=== PATIENT | male | born 1980 | race Hispanic/Latino ===

== ENCOUNTER 2017-05-19 19:53 | Observation (INO) | payer OTHER ==
--- NOTE | 2017-05-19 20:54 | ED PDOC ---
HPI: Chest Pain Time Seen by Provider: 05/19/17 20:02 Chief Complaint (Nursing): Palpitations History Per: Patient, Family History/Exam Limitations: no limitations Onset/Duration Of Symptoms: Hrs Current Symptoms Are (Timing): Still Present Quality: Other (fluttering in chest ) Associated Symptoms: Diaphoresis Modifying Factors: None Exacerbating Factors: None Alleviating Factors: None Additional Complaint(s): CC: fluttering of my heart HPI: 36 YO Male with PMH Of HTN, pre-diabetes, and prolactinoma presents to [facility] ED for palpitations. Pt states that he noticed rapid heart beat about 2 hrs ago, but noticed that it worsened in the past 45mins. He states that he feels uncomfortable and is anxious. Had similar episode in December when he was in [place]. Pt was seen in an urgent care and subsequently sent to the ED where he was admitted to the hospital and worked up where "everything came back negative", they did not find a cause of his rapid heart beat. Pt states that he takes 3 meds for his bp lisinopril, amlodipine, and metoprolol and cabergoline which he takes 2x a week. 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 Roche. Had an echo done at the same time, which was "normal" per pt. Denies chest pain, dyspnea, headache, dizziness, light headed, n/v/d/c, chills, fevers. Partner present by bedside. Pt has a cough, took a [facility] brand cough medication a few days ago. PMD: Annetta ROWE PMH: HTN, pre-diabetes, and prolactinoma SurgHx: denies SH: denies ETOH, smoking and illicit drug use FH: hx of CAD, HTN and DM in family Allergies: NKDA Meds: lisinopril, amlodipine, metoprolol, metformin, cabergoline Past Medical History Vital Signs: Last Vital Signs Temp 98.1 F 05/19/17 20:01 Pulse 106 H 05/19/17 23:50 Resp 16 05/19/17 23:50 BP 107/41 L 05/19/17 23:50 Pulse Ox 100 05/20/17 01:10 - Medical History PMH: HTN Other PMH: prolactinoma, pre-diabetes - Surgical History Surgical History: No Surg Hx - Family History Family History: States: CAD, Diabetes, Hypertension - Living Arrangements Living Arrangements: With Family - Social History Current smoker - smoking cessation education provided: No Alcohol: None Drugs: Denies - Home Medications Home Medications: Ambulatory Orders Medication Instructions Recorded Cabergoline 0.5 mg PO QWK 05/19/17 Lisinopril/Hydrochlorothiazide 1 each PO BID 05/19/17 [Lisinopril-Hctz 10-12.5 mg Tab] Metformin HCl [Glucophage] 500 mg PO BID 05/19/17 Metoprolol Succinate [Toprol XL] 100 mg PO DAILY 05/19/17 amLODIPine [Norvasc] 10 mg PO DAILY 05/19/17 - Allergies Allergies/Adverse Reactions: Allergies Allergy/AdvReac Type Severity Reaction Status Date / Time No Known Allergies Allergy Verified 05/19/17 20:01 Wells Criteria for PE - Wells Criteria for Pulmonary Embolism Heart Rate >100: Yes Immobilization at least 3 days;Surgery previous 4 weeks: No Previous, objectively diagnosed PE or DVT: No Hemoptysis: No Malignancy w/treatment within 6 months, or palliative: No Total Score: 1.5 Review of Systems Constitutional: Negative for: Fever, Chills Cardiovascular: Positive for: Palpitations. Negative for: Chest Pain, Edema Respiratory: Positive for: Cough. Negative for: Shortness of Breath Gastrointestinal: Negative for: Nausea, Vomiting, Abdominal Pain, Diarrhea, Constipation Neurological: Negative for: Confusion, Seizures, Headache Physical Exam - Reviewed Vital Signs Reviewed: Yes - Physical Exam Appears: Positive for: In Acute Distress (diaphoretic ) Head Exam: Positive for: ATRAUMATIC, NORMOCEPHALIC Skin: Positive for: Diaphoresis Eye Exam: Positive for: Normal appearance, EOMI Neck: Positive for: Painless ROM Cardiovascular/Chest: Positive for: Tachycardia. Negative for: JVD, Murmur Respiratory: Positive for: Normal Breath Sounds. Negative for: Crackles, Wheezing Gastrointestinal/Abdominal: Positive for: Normal Exam, Bowel Sounds, Soft. Negative for: Tenderness Back: Positive for: Normal Inspection Extremity: Positive for: Normal ROM. 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 Negative for: Aphasia, Facial Droop - Laboratory Results Result Diagrams: 05/19/17 20:57 05/19/17 20:57 - ECG ECG: Positive for: Interpreted By Me ECG Rhythm: Positive for: Atrial Fibrillation Interpretation Of Abn EKG: A fib with a rate of 152 O2 Sat by Pulse Oximetry: 100 - Progress ED Course And Treament: 36 YO Male with PMH Of HTN, pre-diabetes, and prolactinoma presents to [facility] ED for palpitations. --cbc, Mg , phos --cmp --trops --EKG --cardizem 20mg --utox --etoh --vbg --TSH --PT/PTT --urine dip --chest x-ray Blood work neg; cbc, cmp, Mg, phos, tsh, pro BNP wnl Trops neg x 1 PT/PTT wnl utox and ETOH neg Metropolol 4mg IVP x 2 Repeat EKG, read by me; A fib with RVR, rate of 108 Pt seen and reevaluated Feels better, no longer feeling rapid acceleration in heart rate. Better rate control, HR 90's-100's Ct angio ordered Cardiology Dr. Roche consulted for rapid afib Will admit to patient for persistent a.fib with rvr CT angio IMPRESSION: No acute cardiopulmonary process. Disposition - Clinical Impression Clinical Impression: A-fib - Patient ED Disposition Is Patient to be Admitted: Yes - Disposition Disposition Time: 01:17 Condition: STABLE
[2017-05-19 21:04] LABS: VENOUS BLOOD GAS BASE EXCESS 1.7 mmol/L (0.0-2.0); VENOUS BLOOD GAS PCO2 30 mmHg (40-60); VENOUS BLOOD GAS PO2 49 mm/Hg (30-55); VENOUS BLOOD PH 7.51 (7.32-7.43)
[2017-05-19 21:04] LABS: BASO # 0.1 K/uL (0.0-0.2); BASO % 1.3 % (0.0-2.0); EOS # 0.2 K/uL (0.0-0.7); HEMOGLOBIN 14.8 g/dL (12.0-18.0); LYMPH # 2.7 K/uL (1.0-4.3); LYMPH % 32.2 % (20.0-40.0); MEAN CELL VOLUME 81.2 fl (80.0-94.0); MEAN CORPUSCULAR HGB CONC 33.2 g/dL (33.0-37.0); MEAN PLATELET VOLUME 9.3 fl (7.2-11.7); MONO # 0.7 K/uL (0.0-0.8); MONO % 8.8 % (0.0-10.0); NEUT # 4.6 K/uL (1.8-7.0); NEUT % 55.7 % (50.0-75.0); NRBC % 0.9 % (0.0-0.0); RBC 5.49 Mil/uL (4.40-5.90); RED CELL DISTRIBUTION WIDTH 13.8 % (11.5-14.5); WHITE BLOOD COUNT 8.3 K/uL (4.8-10.8)
[2017-05-19 21:28] LABS: B-TYPE NATRIURETIC PEPTIDE 83.9 pg/ml (0-450)
[2017-05-19 21:29] LABS: ALB/GLOB RATIO 1.2 (1.0-2.1); ALBUMIN 4.5 g/dL (3.5-5.0); ALT/SGPT 46 U/L (21-72); AST/SGOT 31 U/L (17-59); BLOOD UREA NITROGEN 15 mg/dl (9-20); GFR AFRICAN-AMERICAN > 60; GFR NON-AFRICAN AMERICAN > 60; MAGNESIUM 1.9 MG/DL (1.6-2.3)
[2017-05-19 21:37] LABS: PARTIAL THROMBOPLASTIN TIME 31.8 Seconds (25.6-37.1)
[2017-05-19] MEDS ORDERED: diltiaZEM 100 mg Vial ( ADD-VANTAGE ) IV ONE (21:43)
[2017-05-19 22:18] LABS: BARBITURATES, UR NEGATIVE (NEGATIVE); BENZODIAZEPINES, UR NEGATIVE (NEGATIVE); OPIATES, UR NEGATIVE (NEGATIVE); PHENCYCLIDINE, UR NEGATIVE (NEGATIVE)
[2017-05-19] MEDS ORDERED: Metoprolol 1 mg/ml Inj IVP STA ×2 (22:45→23:17)
[2017-05-19] MEDS ORDERED: CABERGOLINE 0.5 MG PO SCH (23:45)
[2017-05-19] MEDS ORDERED: Potassium Chloride 20 mEq ER Tab PO STA (23:52)
[2017-05-19] MEDS ORDERED: Sodium Chloride 0.9% 50 ML IV ONE (23:57)
[2017-05-19] MEDS ORDERED: Iodixanol 320 mg/ml 50 ml Sol IV ONE (23:57)
[2017-05-20] MEDS ORDERED: Enoxaparin 100 mg Syringe SC STA (00:33)
[2017-05-20] MEDS ORDERED: Potassium Chloride 20 mEq ER Tab PO ONE (00:54)
[2017-05-20 07:03] LABS: BASO # 0.1 K/uL (0.0-0.2); BASO % 0.9 % (0.0-2.0); EOS % 0.5 % (0.0-4.0); HEMOGLOBIN 14.4 g/dL (12.0-18.0); LYMPH # 2.5 K/uL (1.0-4.3); MEAN CELL VOLUME 81.5 fl (80.0-94.0); MEAN CORPUSCULAR HEMOGLOBIN 27.2 pg (27.0-31.0); MEAN CORPUSCULAR HGB CONC 33.4 g/dL (33.0-37.0); MEAN PLATELET VOLUME 9.4 fl (7.2-11.7); MONO # 0.8 K/uL (0.0-0.8); PLATELET COUNT 251 K/uL (130-400); WHITE BLOOD COUNT 9.5 K/uL (4.8-10.8)
--- NOTE | 2017-05-20 07:44 | CARD ---
APPROVED REPORT EKG Measurement Heart [id number] <Conclusion> Atrial fibrillation with rapid ventricular response Incomplete right bundle branch block ST & T wave abnormality, consider inferior ischemia Abnormal ECG
--- NOTE | 2017-05-20 07:52 | CARD ---
APPROVED REPORT EKG Measurement Heart [id number] <Conclusion> Sinus tachycardia Marked ST abnormality, possible inferior subendocardial injury Marked ST abnormality, possible anterolateral subendocardial injury Abnormal ECG
--- NOTE | 2017-05-20 08:02 | CP.PCM.HP ---
History of Present Illness - History of Present Illness History of Present Illness: pt admitted for tele obs after having palpitations and being in afib at rate of 160. at present. pressure to r axilla w/o palipitations. nsr in 70s on monitor, cardizem gtt. states saw cardio thurs and had echo completed. no f/c, n/v/d. bw noted. Present on Admission - Present on Admission Any Indicators Present on Admission: No Review of Systems - Cardiovascular Cardiovascular: As Per HPI, Irregular Heart Rhythm, Palpitations, Rapid Heart Rate Past Patient History - Past Social History Alcohol: None Drugs: Denies - CARDIAC Hx Hypertension: Yes - PULMONARY Hx Respiratory Disorders: No - NEUROLOGICAL Hx Neurological Disorder: No - HEENT Hx HEENT Problems: No - RENAL Hx Chronic Kidney Disease: No - ENDOCRINE/METABOLIC Other/Comment: Pituatary gland tumor - MUSCULOSKELETAL/RHEUMATOLOGICAL Hx Musculoskeletal Disorders: No - PSYCHIATRIC Hx Substance Use: No Meds Allergies/Adverse Reactions: Allergies Allergy/AdvReac Type Severity Reaction Status Date / Time No Known Allergies Allergy Verified 05/19/17 20:01 Physical Exam - Constitutional Appears: Well, Non-toxic, No Acute Distress - Head Exam Head Exam: ATRAUMATIC, NORMAL INSPECTION, NORMOCEPHALIC - Eye Exam Eye Exam: EOMI, Normal appearance, PERRL Pupil Exam: NORMAL ACCOMODATION, PERRL - ENT Exam ENT Exam: Mucous Membranes Moist, Normal Exam - Neck Exam Neck exam: Positive for: Normal Inspection - Respiratory Exam Respiratory Exam: Clear to Auscultation Bilateral, NORMAL BREATHING PATTERN - Cardiovascular Exam Cardiovascular Exam: REGULAR RHYTHM, RRR, +S1, +S2 - GI/Abdominal Exam GI & Abdominal Exam: Normal Bowel Sounds, Soft. absent: Tenderness - Extremities Exam Extremities exam: Positive for: full ROM, normal capillary refill, normal inspection, pedal pulses present - Back Exam Back exam: NORMAL INSPECTION - Neurological Exam Neurological exam: Alert, CN II-XII Intact, Normal Gait, Oriented x3, Reflexes Normal - Psychiatric Exam Psychiatric exam: Normal Affect, Normal Mood - Skin Skin Exam: Dry, Intact, Normal Color, Warm Results - Vital Signs Recent Vital Signs: Last Vital Signs Temp 98.1 F 05/19/17 20:01 Pulse 106 H 05/19/17 23:50 Resp 16 05/19/17 23:50 BP 107/41 L 05/19/17 23:50 Pulse Ox 100 05/20/17 01:18 - Labs Result Diagrams: 05/20/17 04:30 05/19/17 20:57 Labs: Laboratory Results - last 24 hr 05/19/17 05/19/17 05/19/17 20:57 20:57 20:57 WBC 8.3 RBC 5.49 Hgb 14.8 Hct 44.6 MCV 81.2 MCH 27.0 MCHC 33.2 RDW 13.8 Plt Count 241 MPV 9.3 Neut % (Auto) 55.7 Lymph % (Auto) 32.2 [place] % (Auto) 8.8 Eos % (Auto) 2.0 Baso % (Auto) 1.3 Neut # 4.6 Lymph # 2.7 [place]berry # 0.7 Eos # 0.2 Baso # 0.1 PT 11.0 INR 1.0 APTT 31.8 pO2 VBG pH VBG pCO2 VBG HCO3 VBG Total CO2 VBG O2 Sat (Calc) VBG Base Excess VBG Potassium Glucose Lactate FiO2 Sodium 142 Potassium 3.2 L Chloride 102 Carbon Dioxide 25 Anion Gap 18 BUN 15 Creatinine 0.9 Est GFR ( Amer) > 60 Est GFR (Non-Af Amer) > 60 Random Glucose 117 H Calcium 10.0 Phosphorus 3.2 Magnesium 1.9 Total Bilirubin 0.5 AST 31 ALT 46 Alkaline Phosphatase 91 Troponin I < 0.0120 NT-Pro-B Natriuret Pep 83.9 Total Protein 8.1 Albumin 4.5 Globulin 3.6 Albumin/Globulin Ratio 1.2 TSH 3rd Generation 1.79 Venous Blood Potassium Urine Opiates Screen Urine Methadone Screen Ur Barbiturates Screen Ur Phencyclidine Scrn Ur Amphetamines Screen U Benzodiazepines Scrn U Oth Cocaine Metabols U Cannabinoids Screen Alcohol, Quantitative < 10 05/19/17 05/19/17 05/20/17 20:58 21:55 04:30 WBC RBC Hgb Hct MCV MCH MCHC RDW Plt Count MPV Neut % (Auto) Lymph % (Auto) [place]berry % (Auto) Eos % (Auto) Baso % (Auto) Neut # Lymph # [place] # Eos # Baso # PT INR APTT pO2 49 VBG pH 7.51 H VBG pCO2 30 L VBG HCO3 26.0 VBG Total CO2 24.8 VBG O2 Sat (Calc) 91.1 H VBG Base Excess 1.7 VBG Potassium 2.8 L Glucose 126 H Lactate 1.8 FiO2 21.0 Sodium 141.0 Potassium Chloride 106.0 Carbon Dioxide Anion Gap BUN Creatinine Est GFR ( Amer) Est GFR (Non-Af Amer) Random Glucose Calcium Phosphorus Magnesium Total Bilirubin AST ALT Alkaline Phosphatase Troponin I < 0.0120 NT-Pro-B Natriuret Pep Total Protein Albumin Globulin Albumin/Globulin Ratio TSH 3rd Generation Venous Blood Potassium 2.8 L Urine Opiates Screen Negative Urine Methadone Screen Negative Ur Barbiturates Screen Negative Ur Phencyclidine Scrn Negative Ur Amphetamines Screen Negative U Benzodiazepines Scrn Negative U Oth Cocaine Metabols Negative U Cannabinoids Screen Negative Alcohol, Quantitative 05/20/17 04:30 WBC 9.5 RBC 5.30 Hgb 14.4 Hct 43.2 MCV 81.5 MCH 27.2 MCHC 33.4 RDW 14.0 Plt Count 251 MPV 9.4 Neut % (Auto) Lymph % (Auto) 26.0 [place] % (Auto) 8.0 Eos % (Auto) 0.5 Baso % (Auto) 0.9 Neut # Lymph # 2.5 [place]berry # 0.8 Eos # 0.0 Baso # 0.1 PT INR APTT pO2 VBG pH VBG pCO2 VBG HCO3 VBG Total CO2 VBG O2 Sat (Calc) VBG Base Excess VBG Potassium Glucose Lactate FiO2 Sodium Potassium Chloride Carbon Dioxide Anion Gap BUN Creatinine Est GFR ( Amer) Est GFR (Non-Af Amer) Random Glucose Calcium Phosphorus Magnesium Total Bilirubin AST ALT Alkaline Phosphatase Troponin I NT-Pro-B Natriuret Pep Total Protein Albumin Globulin Albumin/Globulin Ratio TSH 3rd Generation Venous Blood Potassium Urine Opiates Screen Urine Methadone Screen Ur Barbiturates Screen Ur Phencyclidine Scrn Ur Amphetamines Screen U Benzodiazepines Scrn U Oth Cocaine Metabols U Cannabinoids Screen Alcohol, Quantitative Assessment & Plan (1) DVT prophylaxis Assessment and Plan: scd and ae hose ambulation lovenox if admitted over 24h Status: Acute (2) HTN (hypertension) Assessment and Plan: cont home meds Status: Acute (3) Diabetes mellitus type 2 in obese Assessment and Plan: cont home meds fsbg dietary control bmi 46-diet/exercise Status: Acute (4) A-fib Assessment and Plan: cardizem gtt cardio change to po meds as tolerated pt had echo in office a few days ago. cancel echo as per cardio request. Status: Acute Decision To Admit - Pt Status Changed To: Hospital Disposition Of: Observation - . Bed Request Type: Telemetry Admitting Physician: Didi Mendieta
[2017-05-20] MEDS: Metoprolol Succinate 100 mg XL Tab PO SCH (09:19)
[2017-05-20 09:36] LABS: ALB/GLOB RATIO 1.2 (1.0-2.1); ALBUMIN 3.9 g/dL (3.5-5.0); BLOOD UREA NITROGEN 13 mg/dl (9-20); CALCIUM 9.4 mg/dL (8.4-10.2); GFR AFRICAN-AMERICAN > 60; GFR NON-AFRICAN AMERICAN > 60
[2017-05-20 09:37] LABS: ALT/SGPT 34 U/L (21-72); AST/SGOT 20 U/L (17-59)
--- NOTE | 2017-05-20 10:40 | CT ---
PROCEDURE: CT Chest with contrast (Pulmonary Angiogram) HISTORY: refractory afib COMPARISON: None available. TECHNIQUE: Axial computed tomography images were obtained of the chest in the pulmonary arterial phase of enhancement. Coronal and sagittal reformatted images were created and reviewed. Intravenous contrast dose: 95 cc Omnipaque 320 Mean Hounsfield unit values in the main pulmonary artery: 151.17 Radiation dose: Total exam DLP = 45.31 mGy-cm. This CT exam was performed using one or more of the following dose reduction techniques: Automated exposure control, adjustment of the mA and/or kV according to patient size, and/or use of iterative reconstruction technique. FINDINGS: PULMONARY ARTERIES: Unremarkable. No pulmonary embolism. Oriented AORTA: No acute findings. No thoracic aortic aneurysm. LUNGS: Unremarkable. No nodule, mass or pulmonary consolidation. PLEURAL SPACES: Unremarkable. No effusion or pneuomothorax. HEART: Unremarkable. No cardiomegaly. No significant pericardial effusion. LYMPH NODES: No lymphadenopathy. BONES, CHEST WALL: Unremarkable. No fracture or destructive lesion OTHER FINDINGS: Unremarkable. IMPRESSION: No major central pulmonary emboli. Limitations of the current examination: Both qualitative quantitative assessment of opacification of the pulmonary artery is preclude assessment beyond the segmental branch. Concordant results (preliminary interpretation) provided by [employer] Procedure Completed: 00:25 Preliminary ([employer]) Report: Dictated and Authenticated: 10:06 Final Interpretation: 00:29
--- NOTE | 2017-05-20 12:15 | CP.PCM.CON ---
History of Present Illness - History of Present Illness History of Present Illness: 36 yo male with known hypertension admitted with rapid atrial fibrillation given IV beta trini and low dose Cardiazem gtt with reversion to NSR. Normal cardiac w/u several months ago in [place] when presented with chest pain. Normal LVEF, no valvular abn by outpt echo last week. Troponin negative. Recent URI , took OTC cold medications. No chest pain resting comfortably. Past Patient History - Past Medical History & Family History Past Medical History?: Yes - Past Social History Smoking Status: Never Smoked - CARDIAC Hx Hypertension: Yes - PULMONARY Hx Respiratory Disorders: No - NEUROLOGICAL Hx Neurological Disorder: No - HEENT Hx HEENT Problems: No - RENAL Hx Chronic Kidney Disease: No - ENDOCRINE/METABOLIC Other/Comment: Pituatary gland tumor - MUSCULOSKELETAL/RHEUMATOLOGICAL Hx Falls: No - PSYCHIATRIC Hx Substance Use: No - ANESTHESIA Hx Anesthesia: Yes Hx Anesthesia Reactions: No Meds Allergies/Adverse Reactions: Allergies Allergy/AdvReac Type Severity Reaction Status Date / Time No Known Allergies Allergy Verified 05/19/17 20:01 - Medications Medications: Current Medications Amlodipine Besylate (Norvasc) 10 mg PO DAILY [facility] Last Admin: 05/20/17 09:19 Dose: 10 mg Aspirin (Aspirin Chewable) 81 mg PO DAILY [facility] Last Admin: 05/20/17 09:18 Dose: 81 mg Hydrochlorothiazide (Microzide) 12.5 mg PO BID [facility] Last Admin: 05/20/17 09:19 Dose: 12.5 mg Diltiazem HCl 100 mg/ Sodium (Chloride) 100 mls @ 5 mls/hr IV .Q20H ONE; 5 MG/ HR PRN Reason: Protocol Stop: 05/20/17 17:44 Last Admin: 05/19/17 21:56 Dose: 5 mg/hr, 5 mls/hr Lisinopril (Zestril) 10 mg PO BID [facility] Last Admin: 05/20/17 09:20 Dose: 10 mg Metoprolol Succinate (Toprol Xl) 100 mg PO DAILY [facility] Last Admin: 05/20/17 09:19 Dose: 100 mg Physical Exam - Head Exam Head Exam: NORMAL INSPECTION - ENT Exam ENT Exam: Mucous Membranes Moist - Respiratory Exam Respiratory Exam: Clear to Auscultation Bilateral - Cardiovascular Exam Cardiovascular Exam: REGULAR RHYTHM - GI/Abdominal Exam GI & Abdominal Exam: Normal Bowel Sounds - Extremities Exam Extremities exam: Positive for: normal inspection Results - Vital Signs Recent Vital Signs: Last Vital Signs Temp 98.3 F 05/20/17 12:00 Pulse 68 05/20/17 12:00 Resp 18 05/20/17 12:00 BP 121/78 05/20/17 12:00 Pulse Ox 96 05/20/17 12:00 - Labs Result Diagrams: 05/20/17 04:30 05/20/17 04:30 Labs: Laboratory Results - last 24 hr 05/19/17 05/19/17 05/19/17 20:57 20:57 20:57 WBC 8.3 RBC 5.49 Hgb 14.8 Hct 44.6 MCV 81.2 MCH 27.0 MCHC 33.2 RDW 13.8 Plt Count 241 MPV 9.3 Neut % (Auto) 55.7 Lymph % (Auto) 32.2 [place] % (Auto) 8.8 Eos % (Auto) 2.0 Baso % (Auto) 1.3 Neut # 4.6 Lymph # 2.7 [place] # 0.7 Eos # 0.2 Baso # 0.1 PT 11.0 INR 1.0 APTT 31.8 pO2 VBG pH VBG pCO2 VBG HCO3 VBG Total CO2 VBG O2 Sat (Calc) VBG Base Excess VBG Potassium Glucose Lactate FiO2 Sodium 142 Potassium 3.2 L Chloride 102 Carbon Dioxide 25 Anion Gap 18 BUN 15 Creatinine 0.9 Est GFR ( Amer) > 60 Est GFR (Non-Af Amer) > 60 POC Glucose (mg/dL) Random Glucose 117 H Calcium 10.0 Phosphorus 3.2 Magnesium 1.9 Total Bilirubin 0.5 AST 31 ALT 46 Alkaline Phosphatase 91 Troponin I < 0.0120 NT-Pro-B Natriuret Pep 83.9 Total Protein 8.1 Albumin 4.5 Globulin 3.6 Albumin/Globulin Ratio 1.2 TSH 3rd Generation 1.79 Venous Blood Potassium Urine Opiates Screen Urine Methadone Screen Ur Barbiturates Screen Ur Phencyclidine Scrn Ur Amphetamines Screen U Benzodiazepines Scrn U Oth Cocaine Metabols U Cannabinoids Screen Alcohol, Quantitative < 10 05/19/17 05/19/17 05/20/17 20:58 21:55 04:30 WBC RBC Hgb Hct MCV MCH MCHC RDW Plt Count MPV Neut % (Auto) Lymph % (Auto) [place] % (Auto) Eos % (Auto) Baso % (Auto) Neut # Lymph # [place] # Eos # Baso # PT INR APTT pO2 49 VBG pH 7.51 H VBG pCO2 30 L VBG HCO3 26.0 VBG Total CO2 24.8 VBG O2 Sat (Calc) 91.1 H VBG Base Excess 1.7 VBG Potassium 2.8 L Glucose 126 H Lactate 1.8 FiO2 21.0 Sodium 141.0 143 Potassium 3.6 Chloride 106.0 106 Carbon Dioxide 24 Anion Gap 17 BUN 13 Creatinine 0.8 Est GFR ( Amer) > 60 Est GFR (Non-Af Amer) > 60 POC Glucose (mg/dL) Random Glucose 108 Calcium 9.4 Phosphorus Magnesium Total Bilirubin 0.4 AST 20 ALT 34 Alkaline Phosphatase 75 Troponin I 0.0170 NT-Pro-B Natriuret Pep Total Protein 7.1 Albumin 3.9 Globulin 3.2 Albumin/Globulin Ratio 1.2 TSH 3rd Generation Venous Blood Potassium 2.8 L Urine Opiates Screen Negative Urine Methadone Screen Negative Ur Barbiturates Screen Negative Ur Phencyclidine Scrn Negative Ur Amphetamines Screen Negative U Benzodiazepines Scrn Negative U Oth Cocaine Metabols Negative U Cannabinoids Screen Negative Alcohol, Quantitative 05/20/17 05/20/17 05/20/17 04:30 08:14 11:26 WBC 9.5 RBC 5.30 Hgb 14.4 Hct 43.2 MCV 81.5 MCH 27.2 MCHC 33.4 RDW 14.0 Plt Count 251 MPV 9.4 Neut % (Auto) Lymph % (Auto) 26.0 [place] % (Auto) 8.0 Eos % (Auto) 0.5 Baso % (Auto) 0.9 Neut # Lymph # 2.5 Gove # 0.8 Eos # 0.0 Baso # 0.1 PT INR APTT pO2 VBG pH VBG pCO2 VBG HCO3 VBG Total CO2 VBG O2 Sat (Calc) VBG Base Excess VBG Potassium Glucose Lactate FiO2 Sodium Potassium Chloride Carbon Dioxide Anion Gap BUN Creatinine Est GFR ( Amer) Est GFR (Non-Af Amer) POC Glucose (mg/dL) 112 H 104 Random Glucose Calcium Phosphorus Magnesium Total Bilirubin AST ALT Alkaline Phosphatase Troponin I NT-Pro-B Natriuret Pep Total Protein Albumin Globulin Albumin/Globulin Ratio TSH 3rd Generation Venous Blood Potassium Urine Opiates Screen Urine Methadone Screen Ur Barbiturates Screen Ur Phencyclidine Scrn Ur Amphetamines Screen U Benzodiazepines Scrn U Oth Cocaine Metabols U Cannabinoids Screen Alcohol, Quantitative Assessment & Plan - Assessment and Plan (Free Text) Assessment: Paroxysmal atrial fibrillation , currently in NSR. Being treated for pituitary tumor. Controlled hypertension. Plan: Paroxysmal atrial fibrillation first episode with rapid conversion to NSR. #1 Stop Cardiazem gtt #2 Observe on Tele 24 hrs if in NSR can be discharged in am #3 Check Tfts , T4 #4 Event Recording as outpt to assess for PAF #4 No anticoagulation for now #5 Pt may ambulate ad raeann on tele
--- NOTE | 2017-05-20 12:19 | RAD ---
HISTORY: sob COMPARISON: No prior. FINDINGS: LUNGS: No active pulmonary disease. PLEURA: No significant pleural effusion identified, no pneumothorax apparent. CARDIOVASCULAR: Normal. OSSEOUS STRUCTURES: No significant abnormalities. VISUALIZED UPPER ABDOMEN: Normal. OTHER FINDINGS: None. IMPRESSION: No active disease.
[2017-05-20 13:55] LABS: T4 9.24 ug/dl (5.5-11.0)
[2017-05-21 00:06] VITALS: RESP 18
[2017-05-21 05:47] LABS: BASO # 0.1 K/uL (0.0-0.2); BASO % 0.9 % (0.0-2.0); EOS # 0.2 K/uL (0.0-0.7); EOS % 2.8 % (0.0-4.0); HEMOGLOBIN 13.7 g/dL (12.0-18.0); LYMPH % 38.2 % (20.0-40.0); MEAN CORPUSCULAR HEMOGLOBIN 27.2 pg (27.0-31.0); MEAN CORPUSCULAR HGB CONC 33.2 g/dL (33.0-37.0); MEAN PLATELET VOLUME 8.6 fl (7.2-11.7); MONO # 0.6 K/uL (0.0-0.8); MONO % 7.8 % (0.0-10.0); NEUT % 50.3 % (50.0-75.0); NRBC % 1.3 % (0.0-0.0); RBC 5.03 Mil/uL (4.40-5.90); RED CELL DISTRIBUTION WIDTH 13.9 % (11.5-14.5); WHITE BLOOD COUNT 7.9 K/uL (4.8-10.8)
[2017-05-21 06:04] LABS: ALB/GLOB RATIO 1.2 (1.0-2.1); ALBUMIN 3.8 g/dL (3.5-5.0); ALT/SGPT 39 U/L (21-72); AST/SGOT 23 U/L (17-59); BLOOD UREA NITROGEN 16 mg/dl (9-20); CALCIUM 8.9 mg/dL (8.4-10.2); GFR AFRICAN-AMERICAN > 60; GFR NON-AFRICAN AMERICAN > 60
[2017-05-21 07:53] VITALS: BP 124/81; TEMP 97.3; O2SAT 95
--- NOTE | 2017-05-21 08:26 | CP.PCM.DIS ---
Provider - Provider Date of Admission: 05/19/17 23:45 Attending physician: Didi Mendieta MD Time Spent in preparation of Discharge (in minutes): 15 Diagnosis - Discharge Diagnosis (1) DVT prophylaxis Status: Acute (2) HTN (hypertension) Status: Acute (3) Diabetes mellitus type 2 in obese Status: Acute (4) A-fib Status: Acute Hospital Course - Lab Results Lab Results: Most Recent Lab Values WBC 7.9 K/uL (4.8-10.8) 05/21/17 04:25 RBC 5.03 Mil/uL (4.40-5.90) 05/21/17 04:25 Hgb 13.7 g/dL (12.0-18.0) 05/21/17 04:25 Hct 41.3 % (35.0-51.0) 05/21/17 04:25 MCV 82.0 fl (80.0-94.0) 05/21/17 04:25 MCH 27.2 pg (27.0-31.0) 05/21/17 04:25 MCHC 33.2 g/dL (33.0-37.0) 05/21/17 04:25 RDW 13.9 % (11.5-14.5) 05/21/17 04:25 Plt Count 242 K/uL (130-400) 05/21/17 04:25 MPV 8.6 fl (7.2-11.7) 05/21/17 04:25 Gran % TEST NOT PERFORMED 05/20/17 04:30 Neut % (Auto) 50.3 % (50.0-75.0) 05/21/17 04:25 Lymph % (Auto) 38.2 % (20.0-40.0) 05/21/17 04:25 Dent % (Auto) 7.8 % (0.0-10.0) 05/21/17 04:25 Eos % (Auto) 2.8 % (0.0-4.0) 05/21/17 04:25 Baso % (Auto) 0.9 % (0.0-2.0) 05/21/17 04:25 Gran # TEST NOT PERFORMED 05/20/17 04:30 Neut # 4.0 K/uL (1.8-7.0) 05/21/17 04:25 Lymph # 3.0 K/uL (1.0-4.3) 05/21/17 04:25 Dent # 0.6 K/uL (0.0-0.8) 05/21/17 04:25 Eos # 0.2 K/uL (0.0-0.7) 05/21/17 04:25 Baso # 0.1 K/uL (0.0-0.2) 05/21/17 04:25 PT 11.0 Seconds (9.8-13.1) 05/19/17 20:57 INR 1.0 (0.9-1.2) 05/19/17 20:57 APTT 31.8 Seconds (25.6-37.1) 05/19/17 20:57 pO2 49 mm/Hg (30-55) 05/19/17 20:58 VBG pH 7.51 (7.32-7.43) H 05/19/17 20:58 VBG pCO2 30 mmHg (40-60) L 05/19/17 20:58 VBG HCO3 26.0 mmol/L 05/19/17 20:58 VBG Total CO2 24.8 mmol/L (22-28) 05/19/17 20:58 VBG O2 Sat (Calc) 91.1 % (40-65) H 05/19/17 20:58 VBG Base Excess 1.7 mmol/L (0.0-2.0) 05/19/17 20:58 VBG Potassium 2.8 mmol/L (3.6-5.2) L 05/19/17 20:58 Sodium 141.0 mmol/L (132-148) 05/19/17 20:58 Chloride 106.0 mmol/L (98-107) 05/19/17 20:58 Glucose 126 mg/dL (75-110) H 05/19/17 20:58 Lactate 1.8 mmol/L (0.7-2.1) 05/19/17 20:58 FiO2 21.0 % 05/19/17 20:58 Sodium 142 mmol/l (132-148) 05/21/17 04:25 Potassium 3.6 MMOL/L (3.6-5.0) 05/21/17 04:25 Chloride 104 mmol/L (98-107) 05/21/17 04:25 Carbon Dioxide 27 mmol/L (22-30) 05/21/17 04:25 Anion Gap 15 (10-20) 05/21/17 04:25 BUN 16 mg/dl (9-20) 05/21/17 04:25 Creatinine 0.9 mg/dl (0.8-1.5) 05/21/17 04:25 Est GFR ( Amer) > 60 05/21/17 04:25 Est GFR (Non-Af Amer) > 60 05/21/17 04:25 POC Glucose (mg/dL) 98 mg/dL (65-110) 05/21/17 05:27 Random Glucose 109 mg/dL (75-110) 05/21/17 04:25 Calcium 8.9 mg/dL (8.4-10.2) 05/21/17 04:25 Phosphorus 3.2 mg/dl (2.5-4.5) 05/19/17 20:57 Magnesium 1.9 MG/DL (1.6-2.3) 05/19/17 20:57 Total Bilirubin 0.6 mg/dl (0.2-1.3) 05/21/17 04:25 AST 23 U/L (17-59) 05/21/17 04:25 ALT 39 U/L (21-72) 05/21/17 04:25 Alkaline Phosphatase 65 U/L (38-126) 05/21/17 04:25 Troponin I < 0.0120 ng/mL (0.00-0.120) 05/20/17 12:25 NT-Pro-B Natriuret Pep 83.9 pg/ml (0-450) 05/19/17 20:57 Total Protein 6.9 G/DL (6.3-8.2) 05/21/17 04:25 Albumin 3.8 g/dL (3.5-5.0) 05/21/17 04:25 Globulin 3.1 gm/dL (2.2-3.9) 05/21/17 04:25 Albumin/Globulin Ratio 1.2 (1.0-2.1) 05/21/17 04:25 Thyroxine (T4) 9.24 ug/dl (5.5-11.0) 05/20/17 13:10 TSH 3rd Generation 1.27 mIU/ML (0.46-4.68) 05/20/17 13:10 Venous Blood Potassium 2.8 mmol/L (3.6-5.2) L 05/19/17 20:58 Urine Opiates Screen Negative (NEGATIVE) 05/19/17 21:55 Urine Methadone Screen Negative (NEGATIVE) 05/19/17 21:55 Ur Barbiturates Screen Negative (NEGATIVE) 05/19/17 21:55 Ur Phencyclidine Scrn Negative (NEGATIVE) 05/19/17 21:55 Ur Amphetamines Screen Negative (NEGATIVE) 05/19/17 21:55 U Benzodiazepines Scrn Negative (NEGATIVE) 05/19/17 21:55 U Oth Cocaine Metabols Negative (NEGATIVE) 05/19/17 21:55 U Cannabinoids Screen Negative (NEGATIVE) 05/19/17 21:55 Alcohol, Quantitative < 10 mg/dl (0-10) 05/19/17 20:57 - Hospital Course Hospital Course: cardio cardizem tele monitoring Discharge Exam - Head Exam Head Exam: ATRAUMATIC, NORMAL INSPECTION, NORMOCEPHALIC - Eye Exam Eye Exam: EOMI, Normal appearance, PERRL Pupil Exam: NORMAL ACCOMODATION, PERRL - Respiratory Exam Respiratory Exam: Clear to PA & Lateral, NORMAL BREATHING PATTERN, UNREMARKABLE - Cardiovascular Exam Cardiovascular Exam: REGULAR RHYTHM, RRR, +S1, +S2 - GI/Abdominal Exam GI & Abdominal Exam: Normal Bowel Sounds, Soft, Unremarkable - Exam External exam: NORMAL EXTERNAL EXAM Speculum exam: NORMAL SPECULUM EXAM Bimanual exam: NORMAL BIMANUAL EXAM - Extremities Exam Extremities exam: full ROM, normal capillary refill, normal inspection, pedal pulses present - Back Exam Back exam: FULL ROM - Neurological Exam Neurological exam: Alert, CN II-XII Intact, Normal Gait, Oriented x3, Reflexes Normal - Psychiatric Exam Psychiatric exam: Normal Affect, Normal Mood - Skin Skin Exam: Dry, Intact, Normal Color, Warm Discharge Plan - Follow Up Plan Condition: STABLE Disposition: HOME/ ROUTINE Additional Instructions: doing well, heart regular in 60s. no f/c, n/v/d. no cp, palpitations. final dx-afib w/ rvr. f/u rmg and cardio 2-3 days, rted prn, meds per med rec
[2017-05-21] MEDS: Metoprolol Succinate 100 mg XL Tab PO SCH (08:58)
[2017-05-21 10:26] VITALS: PULSE 78
== END 2017-05-21 11:17 | disposition home or self-care (01) ==
LOC: H.ER 19:53 → H.ERHOLD 23:45 → H.TEL 05-20 03:14
PROVIDERS: ADMIT Family Medicine; ATTEND Family Medicine
DX: I48.0 Paroxysmal atrial fibrillation (principal); D49.7 Neoplasm of unspecified behavior of endocrine glands and other parts of nervous system; E11.9 Type 2 diabetes mellitus without complications; E66.9 Obesity, unspecified; I10 Essential (primary) hypertension; I25.10 Atherosclerotic heart disease of native coronary artery without angina pectoris; Z68.42 Body mass index [BMI] 45.0-49.9, adult; Z79.899 Other long term (current) drug therapy; Z82.49 Family history of ischemic heart disease and other diseases of the circulatory system; Z83.3 Family history of diabetes mellitus; J06.9 Acute upper respiratory infection, unspecified; Z79.84 Long term (current) use of oral hypoglycemic drugs; R00.0 Tachycardia, unspecified; R00.2 Palpitations
CPT/HCPCS: 36415; 71045; 71275; 80053; 80320; 80324; 80345; 80346; 80349; 80353; 80358; 80361; 82803; 82948; 83735; 83880; 83992; 84100; 84436; 84443; 84484; 85025; 85610; 85730; 93005; 96360; 96361; 96374; 99285; G0378; J1650; Q9967